=== PATIENT | male | born 1960 | race Caucasian/White ===

== ENCOUNTER 2017-04-17 16:07 | Outpatient (CLI) | payer MEDICARE ==
[~2017-04-17 16:07] MED LIST: ATORVASTATIN CA20 MG ORAL; CLARITHROMYCIN500 MG PO; ELIQUIS5 MG PO; IBUPROFEN600 MG ORAL; LEVAQUIN500 MG ORAL; MEPRON SUS750 MG/5 M ORAL; NORVIR100 MG ORAL; PREZISTA600 MG ORAL; PROMETH-CODEIN 65 ML PO; SPIRIVA18 MCG INH; TIVICAY50 MG ORAL; TRUVADA 200 MG1 EAC1 ORAL
--- NOTE | 2017-04-21 10:06 | Diagnostic Imaging Report ---
Indication: Knee pain Technique: MRI of the right knee was imaged in a 1.5 Grazyna magnet. Pulse sequences obtained include coronal T1 fast spin-echo, STIR, sagittal coronal and axial proton fast spin-echo with fat saturation, sagittal proton fast spin-echo. Comparison: None Findings: There is a moderate to large joint effusion present. In the medial and patellofemoral compartments (lateral patellar facet) of the knee there is moderate chondrosis (grade 3-4) with full-thickness cartilage defects noted. Grade 2-3 defects in the lateral compartment demonstrated. Mild marginal spurs are noted. There is abnormal T2 hyperintense signal within the posterior horn of the medial meniscus. This appears to intersect the articular surface at the free edge of the meniscus, finding that is best appreciated on coronal sequences (for example image 9 of series 7 or series 6). The lateral meniscus is intact. The anterior cruciate ligament and posterior cruciate ligaments are intact. The fibular collateral ligament, biceps femoris tendon, iliotibial band and popliteus tendon appear unremarkable. There is slight enlargement of a mid portion of the MCL. In addition there is longitudinally and vertically oriented fluid signal noted within the inner fibers of the MCL (for example image 13 series 7). The findings likely indicative of a delamination or longitudinal split tear of the MCL. Please correlate clinically. Bone marrow signal is within normal limits. Impression: Suspected free edge tear of the medial meniscus. Split-thickness type tear involving the deep fibers of MCL at its midportion. Moderate to large joint effusion. 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
== END 2017-04-17 18:07 | disposition home or self-care (01) ==
LOC: MRI 16:07
DX: M25.561 Pain in right knee (principal)

== ENCOUNTER 2019-04-16 20:57 | Inpatient (IN) | payer MEDICARE ==
[~2019-04-16] VITALS: Ht 180.3 cm; Wt 90.7 kg
--- NOTE | 2019-04-16 21:16 | Emergency Room Report ---
History of Present Illness General Chief Complaint: General Complaint Source: Patient Present Illness HPI Disclaimer: Please note that this report is being documented using DRAGON technology. This can lead to erroneous entry secondary to incorrect interpretation by the dictating instrument. HPI: 58-year-old male with a history of HIV, Kaposi's sarcoma, protein C deficiency, prior DVTs presents for evaluation of calf pain and swelling. Symptoms have been present approximately 1 week. The patient recently drove from [place] to [place] after which she has been experiencing pain and cramping and swelling in the left lower extremity with mild pain without swelling in the right lower extremity. He has been off of his Eliquis for 2 weeks in preparation for dental surgery. He also recently took a plane ride to [place]. Denies chest pain, shortness of breath, palpitations, lightheadedness, nausea, vomiting, rash or recent fever/illness. PMH: HIV, Kaposi sarcoma, DVTs PSH: Multiple oral surgeries Allergies: Sulfa medications Social Hx: Denies drug or alcohol abuse Allergies: Coded Allergies: SULFA (SULFONAMIDE ANTIBIOTICS) (Verified Allergy, Unknown, 08/04/15) Nursing Documentation-PMH Hx Cardiac Problems: Yes - CHF Hx Hypertension: No Hx Pacemaker: No - AIDS Hx Asthma: No Hx COPD: No - Pneumonia Hx Diabetes: No Hx Cancer: No Hx Gastrointestinal Problems: No Hx Dialysis: No Hx Neurological Problems: Yes - Memory problem Hx Cerebrovascular Accident: No Hx Seizures: No Review of Systems All Other Systems: negative except mentioned in HPI Physical Exam General: Awake and alert, no acute distress HEENT: NC/AT. EOMI. Cardiovascular: RRR. S1 and S2 normal. No murmur appreciated Resp: Normal work of breathing. No cough, wheezing or crackles appreciated Abdomen: Abdomen is soft, nondistended. Nontender Skin: Intact. No abrasions, laceration or rash over the exposed skin MSK: Normal tone and bulk. Moving all extremities. The left lower extremity particularly over the calf is enlarged and tender to palpation over the posterior aspect. No mass appreciated. Full range of motion at the ankles, knees and hips. No significant tenderness in the right lower extremity. No swelling. No overlying skin changes or erythema. Neuro: Awake and alert. Mentating appropriately. Procedures Critical Care Time Critical Care Time Total critical care time: Approximately 45 minutes Due to a high probability of clinically significant, life threatening deterioration, the patient required the highest level of preparedness to intervene emergently and I personally spent this critical care time directly and personally managing the patient. This critical care time included obtaining a history, examining the patient, pulse oximetry, ordering and reviewing studies , ordering treatments, evaluating response to treatment and updating management plan as needed, frequent reassessment and discussion with other providers as well as arranging for ultimate disposition. This critical to care time was performed to assess and manage the high probability of life-threatening deterioration that could result in multiorgan failure. This critical care time is separate from the separately billable procedures and treating other patients. Medical Decision Making Diagnostic Impression: Primary Impression: Left leg DVT Additional Impression: Pulmonary embolism ER Course 58-year-old male presents for evaluation of left lower extremity pain and swelling of several weeks after stopping his Eliquis in preparation for a dental surgery. Patient has a history of protein C/S deficiency and previous history of lower extremity DVTs which he states last occurred in 2007. He denies any chest pain, shortness of breath or palpitations. Will ordered lower extremity duplex study, screening labs, EKG. Laboratory Tests Test 04/16/19 21:20 White Blood Count 7.5 K/UL (4.8-10.8) Red Blood Count 4.34 M/UL (4.70-6.10) L Hemoglobin 14.6 G/DL (14.2-18.0) Hematocrit 40.7 % (42.0-52.0) L Mean Corpuscular Volume 94 FL (80-99) Mean Corpuscular Hemoglobin 33.7 PG (27.0-31.0) H Mean Corpuscular Hemoglobin Concent 35.8 G/DL (32.0-36.0) Red Cell Distribution Width 9.9 % (11.6-14.8) L Platelet Count 301 K/UL (150-450) Mean Platelet Volume 4.8 FL (6.5-10.1) L Neutrophils (%) (Auto) 52.7 % (45.0-75.0) Lymphocytes (%) (Auto) 32.7 % (20.0-45.0) Monocytes (%) (Auto) 11.7 % (1.0-10.0) H Eosinophils (%) (Auto) 1.4 % (0.0-3.0) Basophils (%) (Auto) 1.5 % (0.0-2.0) Prothrombin Time 10.1 SEC (9.30-11.50) Prothrombin Time INR 0.9 (0.9-1.1) PTT 28 SEC (23-33) Sodium Level 139 MMOL/L (136-145) Potassium Level 3.8 MMOL/L (3.5-5.1) Chloride Level 104 MMOL/L (98-107) Carbon Dioxide Level 27 MMOL/L (21-32) Anion Gap 8 mmol/L (5-15) Blood Urea Nitrogen 11 mg/dL (7-18) Creatinine 0.7 MG/DL (0.55-1.30) Estimate Glomerular Filtration Rate > 60 mL/min (>60) Glucose Level 100 MG/DL (74-106) Calcium Level 8.9 MG/DL (8.5-10.1) Total Bilirubin 0.4 MG/DL (0.2-1.0) Aspartate Amino Transferase (AST) 16 U/L (15-37) Alanine Aminotransferase (ALT) 22 U/L (12-78) Alkaline Phosphatase 54 U/L (46-116) Troponin I 0.000 ng/mL (0.000-0.056) Pro-B-Type Natriuretic Peptide 45 pg/mL (0-125) Total Protein 7.3 G/DL (6.4-8.2) Albumin 3.2 G/DL (3.4-5.0) L Globulin 4.1 g/dL Albumin/Globulin Ratio 0.8 (1.0-2.7) L EKG Diagnostic Results EKG Time: 21:28 Rate: normal Rhythm: NSR ST Segments: no acute changes Other Impression Sinus rhythm, normal axis, normal intervals. No ST segment changes. There is an S1, Q3, T3 pattern not seen on prior EKG in 2016 Rhythm Strip Diag. Results Rhythm Strip Time: 21:28 EP Interpretation: yes Rate: 70s Rhythm: NSR, no PVC's, no ectopy Chest X-Ray Diagnostic Results Chest X-Ray Diagnostic Results : Chest X-Ray Ordered: Yes # of Views/Limited/Complete: 1 View Indication: Shortness of Breath Interpretation: no consolidation, no effusion, no pneumothorax Impression: No acute disease Electronically Signed by: Electronically signed by Dr. Bry Jackson CT/MRI/US Diagnostic Results CT/MRI/US Diagnostic Results : Impression Final Report EXAM: CT Angiography Chest With Intravenous Contrast CLINICAL HISTORY: PE TECHNIQUE: Axial computed tomographic angiography images of the chest with intravenous contrast. CTDI is 228.1 mGy and DLP is 961.6 mGy-cm. One or more of the following dose reduction techniques were used: automated exposure control, adjustment of the mA and/or kV according to patient size, use of iterative reconstruction technique. MIP reconstructed images were created and reviewed. COMPARISON: Chest x-ray 04/16/19. No prior CT. FINDINGS: Contrast bolus timing in the pulmonary arteries is suboptimal but exam is diagnostic for PE, example right lower lobe. Incompletely characterize right hepatic lobe liver lesion. Suspect some peripheral nodular enhancement. Differential includes hemangioma. Additional low-density liver lesion too small to characterize Atelectasis with probable early infarct in the right lower lobe. Small lung nodules measuring up to about 3 mm in size, example left lower lobe image 95/10, right middle lobe image 160/11. IMPRESSION: Possible for PE, example right lower lobe. Suspect combination of atelectasis as well as early infarct, example right lower lobe. Indeterminate liver lesion, possible hemangioma and other findings, as above. Radiologist: Christopher Rosas M.D. Electronically Signed: 04/17/19 01:07 Study ready at 00:48 and initial results transmitted at 01:07 Final Report EXAM: US Duplex Bilateral Lower Extremities Veins CLINICAL HISTORY: DVT TECHNIQUE: Real-time duplex ultrasound scan of the bilateral lower extremity veins integrating B-mode two-dimensional vascular structure, Doppler spectral analysis , color flow Doppler imaging and compression. COMPARISON: No relevant prior studies available. FINDINGS: Positive for DVT on the left. There is DVT involving the superficial femoral vein, popliteal vein and calf veins on the left. No evidence for DVT on the right. IMPRESSION: Positive for DVT on the left with involvement of the superficial femoral, popliteal and calf veins. Reevaluation Time: 01:17 Status: unchanged Reevaluation Impression Lower extremity Doppler study showed significant clot burden in the left leg consistent with acute DVT. Given his EKG changes a CTA of the chest was ordered to evaluate for pulmonary embolism. Is is returned positive with a right lower lobe PE but no evidence of heart strain. Patient was started on heparin drip. Labs are otherwise within normal limits. He will be admitted to the hospital for further treatment of PE and DVT. Disposition: ADMITTED INPATIENT Condition: Serious Bry Jackson MD Apr 16, 2019 21:16
[2019-04-16 21:25] VITALS: BP 139/86
--- NOTE | 2019-04-16 21:25 | NUR ---
ER Nurse Note: Pt walked in c/o pain and swelling LT leg and calf. Pt stated he had blood clots on RT leg and has the same s/s. Pt stated he went on a plane on a recent travel and after went on a long car drive to another destination. Pt stated pain occured shortly after but delayed care. Pt ambulatory with limp; strength right great than left. Pt able to move toes without discomfort, cap refill less than 3 secs on all extremities. VSS, oral temp 100.2F, ERMD aware. All labs drawn,awaiting results. SLIV established on LT wrist 18 gauge. ERMD at bedside. US contacted. Will continue to aurelia.
[2019-04-16 21:50] LABS: ANION GAP 8 mmol/L (5-15); BLOOD UREA NITROGEN 11 mg/dL (7-18); CALCIUM 8.9 MG/DL (8.5-10.1); CARBON DIOXIDE 27 MMOL/L (21-32); CHLORIDE 104 MMOL/L (98-107); CREATININE 0.7 MG/DL (0.55-1.30); POTASSIUM 3.8 MMOL/L (3.5-5.1); SODIUM 139 MMOL/L (136-145)
[2019-04-16 21:51] LABS: ALANINE AMINOTRANSFERASE 22 U/L (12-78); ALBUMIN 3.2 G/DL (3.4-5.0); ALBUMIN/GLOBULIN RATIO 0.8 (1.0-2.7); ALKALINE PHOSPHATASE 54 U/L (46-116); ASPARTATE AMINO TRANSFERASE 16 U/L (15-37); BILIRUBIN,TOTAL 0.4 MG/DL (0.2-1.0)
[2019-04-16 21:52] LABS: BASOPHILS % (AUTO) 1.5 % (0.0-2.0); EOSINOPHILS % (AUTO) 1.4 % (0.0-3.0); HEMATOCRIT 40.7 % (42.0-52.0); HEMOGLOBIN 14.6 G/DL (14.2-18.0); LYMPHOCYTES % (AUTO) 32.7 % (20.0-45.0); MEAN CORPUSCULAR VOLUME 94 FL (80-99); MONOCYTES % (AUTO) 11.7 % (1.0-10.0); NEUTROPHILS % (AUTO) 52.7 % (45.0-75.0); PLATELET COUNT 301 K/UL (150-450); RED BLOOD COUNT 4.34 M/UL (4.70-6.10); RED CELL DISTRIBUTION WIDTH 9.9 % (11.6-14.8); WHITE BLOOD COUNT 7.5 K/UL (4.8-10.8)
[2019-04-16 21:56] LABS: INR 0.9 (0.9-1.1)
--- NOTE | 2019-04-16 22:11 | NUR ---
ER Nurse Note: Pt went to US; stable, no signs of distress.
--- NOTE | 2019-04-16 22:31 | Diagnostic Imaging Report ---
EXAM: XR Chest, 1 View CLINICAL HISTORY: PAIN TECHNIQUE: Frontal view of the chest. COMPARISON: 09 03 16 FINDINGS: Hypoventilated, rotated portable chest. Cardiac and mediastinal silhouette accentuated by technique. Suspect heart size within normal limits allowing for technique. Crowding of the bronchovascular markings secondary to low lung volumes. Allowing for this, no overt edema. No consolidation or other acute cardiopulmonary findings. IMPRESSION: Hypoventilation. No acute cardiopulmonary findings.
[2019-04-16] MEDS ORDERED: Omnipaue 350mg/ml 100ml vial INJ PRN (23:00)
--- NOTE | 2019-04-16 23:32 | Diagnostic Imaging Report ---
EXAM: US Duplex Bilateral Lower Extremities Veins CLINICAL HISTORY: DVT TECHNIQUE: Real-time duplex ultrasound scan of the bilateral lower extremity veins integrating B-mode two-dimensional vascular structure, Doppler spectral analysis, color flow Doppler imaging and compression. COMPARISON: No relevant prior studies available. FINDINGS: Positive for DVT on the left. There is DVT involving the superficial femoral vein, popliteal vein and calf veins on the left. No evidence for DVT on the right. IMPRESSION: Positive for DVT on the left with involvement of the superficial femoral, popliteal and calf veins. <MYCVCSECTION> Critical Value Communications 04 16 19 23:34 Call Doctor Regarding Above results, called Dr. Jackson on 04 16 23:34 (-07:00)
[2019-04-16 23:40] VITALS: BP 132/76
[2019-04-17] VITALS (7 sets, daily range): BP systolic 109–175; BP diastolic 68–80
--- NOTE | 2019-04-17 00:04 | NUR ---
ER Nurse Note: Pt back in bed after US. SLIV established on RT AC 18 gauge. Pt taken to CTA chest. Pt stable, no signs of distress. Pt denies chest pain, shortness of breath. Skin intact. Pt ambulatory with unstable gait. Will conitnue to kat
[2019-04-17] MEDS ORDERED: NORCO 10/3251 EA ORAL (00:28)
[2019-04-17] MEDS ORDERED: PERIDEX15 ML MM (00:28)
--- NOTE | 2019-04-17 00:39 | NUR ---
ER Nurse Note: Med recon completed. All meds collected and placed in med box. Pt has Barnard 6.5 tabs. All belongings accounted for; pt has electronic devices pt wants to keep at bedside. Pt awaiting room; will continue to montior.
--- NOTE | 2019-04-17 01:08 | Diagnostic Imaging Report ---
EXAM: CT Angiography Chest With Intravenous Contrast CLINICAL HISTORY: PE TECHNIQUE: Axial computed tomographic angiography images of the chest with intravenous contrast. CTDI is 228.1 mGy and DLP is 961.6 mGy-cm. One or more of the following dose reduction techniques were used: automated exposure control, adjustment of the mA and or kV according to patient size, use of iterative reconstruction technique. MIP reconstructed images were created and reviewed. COMPARISON: Chest x-ray [address] FINDINGS: Contrast bolus timing in the pulmonary arteries is suboptimal but exam is diagnostic for PE, example right lower lobe. Incompletely characterize right hepatic lobe liver lesion. Suspect some peripheral nodular enhancement. Differential includes hemangioma. Additional low-density liver lesion too small to characterize Atelectasis with probable early infarct in the right lower lobe. Small lung nodules measuring up to about 3 mm in size, example left lower lobe image 95 10, right middle lobe image 160 11. IMPRESSION: Possible for PE, example right lower lobe. Suspect combination of atelectasis as well as early infarct, example right lower lobe. Indeterminate liver lesion, possible hemangioma and other findings, as above. <MYCVCSECTION> Critical Value [employer] 04 17 19 01:10 Call Doctor Regarding Above results, called Dr. Jackson on 04 17 01:10 (-07:00)
[2019-04-17] MEDS ORDERED: Heparin 5000 units/ml inj IV ONE (01:15)
[2019-04-17] MEDS ORDERED: Heparin 25,000u/D5W 500ml 500 ML IV SCH (01:15)
--- NOTE | 2019-04-17 01:18 | NUR ---
ER Nurse Note: Pt asleep, no signs of distress. VSS, bed in lowest position. Med put in med room box. All safety measures met; will continue to montior.
--- NOTE | 2019-04-17 01:32 | NUR ---
ER Nurse Note: Heparin drip started at rate of 18units/kg/hr based on weight and protocol. One time IV heparin given.
--- NOTE | 2019-04-17 01:54 | NUR ---
ER Nurse Note: Report given to Bj RN in [place] for continuity of care. Pt aware of admission. Meds placed in med box, Bj aware. All belongings taken with pt and wants to keep all belongings at bedside. SLIV RT AC; patent. IV LT wrist infusing heparin 18 unit/kg/hr. Pt stable.
[2019-04-17] MEDS ORDERED: trelegy (02:47)
--- NOTE | 2019-04-17 02:54 | NUR ---
NURSE NOTES: Patient transferred to room 402-2. Oriented patient in the room and hospital regiment regarding medications and vital signs. All belongings at bedside. Refused to have belongings to the safe. Patient noted with iphone, laptop with chargers, and medications. Medication counted and put in security bag. Skin is warm and dry to touch. IV site noted, heparin drip infusing as ordered 18 units/kg/hr infusing. Respiration is even and unlabored. Bed in low and locked position. Provided safe environment. Abdomen is soft and non distended. Call light is at bedside. Called Primary MD for admission orders.
--- NOTE | 2019-04-17 03:35 | NUR ---
NURSE NOTES: Called covering doctor, awaiting call back, left a message.
--- NOTE | 2019-04-17 04:25 | NUR ---
NURSE NOTES: Paged production sampler MD for patient, awaiting call back. charge nurse is aware. Patient in bed, asleep. No s/s of distress noted.
--- NOTE | 2019-04-17 05:00 | NUR ---
NURSE NOTES: Patient in bed, asleep. No s/s of distress. Doctors exchange called, still no response from transfusion nurse doctor. Exchange will attempt again.
[2019-04-17] MEDS ORDERED: Trelegy Ellipta (06:30)
[2019-04-17] MEDS ORDERED: SYMTUZA 800-151 EACH PO (06:31)
--- NOTE | 2019-04-17 07:10 | NUR ---
NURSE NOTES: HANDOFF RECEIVED FROM JUSTIN HANSEN. PATIENT RECEIVED AWAKE AND ALERT AND ABLE TO MAKE NEEDS KNOWN. PATIENT HAS HEPARIN DRIP RUNNING AT THE PRESCRIBED RATE. PATIENT IN NO VISIBLE SIGNS OF DISTRESS. PATIENT HAS CALL LIGHT WITHIN REACH. BED IN THE LOW AND LOCKED POSITION. WILL CONTINUE TO MONITOR.
--- NOTE | 2019-04-17 07:29 | NUR ---
HAND-OFF: Report given to JUSTIN Xiong.
[2019-04-17 08:17] LABS: EOSINOPHILS % (AUTO) 1.3 % (0.0-3.0); HEMATOCRIT 41.6 % (42.0-52.0); HEMOGLOBIN 14.5 G/DL (14.2-18.0); LYMPHOCYTES % (AUTO) 32.2 % (20.0-45.0); MEAN CORPUSCULAR VOLUME 95 FL (80-99); MONOCYTES % (AUTO) 10.2 % (1.0-10.0); NEUTROPHILS % (AUTO) 55.4 % (45.0-75.0); PLATELET COUNT 335 K/UL (150-450); RED BLOOD COUNT 4.39 M/UL (4.70-6.10); RED CELL DISTRIBUTION WIDTH 10.6 % (11.6-14.8); WHITE BLOOD COUNT 7.2 K/UL (4.8-10.8)
[2019-04-17 08:44] LABS: ALANINE AMINOTRANSFERASE 21 U/L (12-78); ALBUMIN/GLOBULIN RATIO 0.8 (1.0-2.7); ALKALINE PHOSPHATASE 46 U/L (46-116); ANION GAP 12 mmol/L (5-15); ASPARTATE AMINO TRANSFERASE 14 U/L (15-37); BILIRUBIN,TOTAL 0.5 MG/DL (0.2-1.0); BLOOD UREA NITROGEN 8 mg/dL (7-18); CALCIUM 8.8 MG/DL (8.5-10.1); CARBON DIOXIDE 25 MMOL/L (21-32); CHLORIDE 104 MMOL/L (98-107); CREATININE 0.7 MG/DL (0.55-1.30); POTASSIUM 3.6 MMOL/L (3.5-5.1); SODIUM 141 MMOL/L (136-145)
[2019-04-17] MEDS: TRELEGY ELLIPTA INH SCH (09:00)
--- NOTE | 2019-04-17 09:00 | NUR ---
NURSE NOTES: MEASURED PATIENTS LEFT LEG PER PROTOCOL. ENTERED THE MEASUREMENT IN THE CHART 41CM WHEN IN FACT THE MEASUREMENT WAS MADE IN INCHES. 41 INCHES IN CM IS 104 CENTIMETERS.
[2019-04-17] MEDS ORDERED: Heparin 5000 units/ml inj IV SCH (09:15)
[2019-04-17] MEDS: Heparin 25,000u/D5W 500ml 500 ML IV SCH ×2 (09:49→09:56)
--- NOTE | 2019-04-17 10:28 | History and Physical ---
History of Present Illness General Date patient seen: Apr 17, 2019 Reason for Hospitalization: General Complaint Present Illness HPI 58 year old male with a history of HIV, Kaposi's sarcoma, protein S/C deficiency , prior DVTs presented for evaluation of calf pain and swelling. Symptoms have been present approximately 1 week. Patient recently drove from [place] to [place] after which she has been experiencing pain and cramping and swelling in the left lower extremity with mild pain without swelling in the right lower extremity. He has been off of his Eliquis for 2 weeks in preparation for dental surgery. He also recently took a plane ride to [place]. Has chest pain with inspiration, but denies shortness of breath, palpitations, lightheadedness , nausea, vomiting, rash or recent fever/illness. When he was on Eliquis, he was only taking 2.5 mg BID due to lots of bruising with 5 mg BID. His last DVT was in 2007. Denies ever having had PE. PMH: HIV, Kaposi sarcoma, DVTs PSH: Multiple oral surgeries Social Hx: Denies drug or alcohol abuse. He is unemployed Family history: CAD in dad, he of [place] in his 40's Allergies: Coded Allergies: SULFA (SULFONAMIDE ANTIBIOTICS) (Verified Allergy, Unknown, 08/04/15) Medication History Scheduled Apixaban (Eliquis), 5 MG PO BID, (Reported) Atorvastatin Calcium* (Atorvastatin Calcium*), 10 MG ORAL BEDTIME, (Reported) Atovaquone (Mepron), 750 MG ORAL TWICE A DAY, (Reported) Chlorhexidine Gluconate (Peridex), 15 ML MM 2Xday, (Reported) Clarithromycin* (Clarithromycin*), 500 MG PO DAILY, (Reported) Darunavir Ethanolate* (Prezista*), 800 MG ORAL DAILY, (Reported) Darunavir/Cob/Emtri/Tenof Alaf (Symtuza [id number] mg Tab), 1 EACH PO DAILY, (Reported) [Trelegy Ellipta], DAILY, (Reported) Scheduled PRN Hydrocodone/Acetaminophen (Hydrocodon-Acetaminophn 10-325), 1 TAB ORAL Q6H PRN for For Pain, (Reported) Ibuprofen* (Motrin*), 600 MG ORAL Q8H PRN for For Pain, (Reported) Discontinued Medications Dolutegravir Sodium (Tivicay), 50 MG ORAL DAILY, (Reported) Discontinued Reason: Pt stopped taking med Emtricitabine/Tenofovir 200-300MG* (Truvada 200-300MG*), 1 TAB ORAL DAILY, ( Reported) Discontinued Reason: Pt stopped taking med Ritonavir* (Norvir*), 100 MG ORAL TWICE A DAY, (Reported) Discontinued Reason: Pt stopped taking med Tiotropium [place]* (Spiriva*), 1 PUFF INH DAILY, (Reported) Discontinued Reason: Pt stopped taking med Patient History Healthcare decision maker Resuscitation status Advanced Directive on File Review of Systems Constitutional: Denies: no symptoms, see HPI, chills, sweats, fever, malaise, weakness, other Eye: Denies: no symptoms, see HPI, eye pain, blurred vision, tearing, double vision, nose pain, nose congestion, acuity changes, discharge, other ENT: Denies: no symptoms, see HPI, ear pain, ear discharge, nose pain, nose congestion, throat pain, throat swelling, mouth pain, hearing loss, nasal discharge, other Respiratory: Denies: no symptoms, see HPI, cough, orthopnea, shortness of breath, stridor, wheezing, WANG, sputum, other Cardiovascular: Reports: chest pain - on inspiration ; Denies: no symptoms, see HPI, edema, palpitations, syncope, PND, other Gastrointestinal: Denies: no symptoms, see HPI, abdominal pain, constipation, diarrhea, nausea, vomiting, melena, hematemesis, other Genitourinary: Denies: no symptoms, see HPI, discharge, dysuria, frequency, hematuria, pain, retention, incontinence, urgency, vag bleed/dc, other Musculoskeletal: Denies: no symptoms, see HPI, back pain, gout, joint pain, joint swelling, muscle pain, muscle stiffness, other Skin: Denies: no symptoms, see HPI, rash, change in color, change in hair/nails , dryness, lesions, other Psychiatric: Denies: no symptoms, see HPI, prior hx, anxiety, depressed feelings, emotional problems, SI, HI, hallucinations, other Endocrine: Denies: no symptoms, see HPI, excessive sweating, flushing, intolerance to temperature, increased thirst, increased urine, unexplained weight loss, other Hematologic/Lymphatic: Reports: blood clots, easy bruising; Denies: no symptoms , see HPI, anemia, easy bleeding, swollen glands, diathesis, other Physical Exam Physical Exam Narrative General: Awake and alert, no acute distress HEENT: NC/AT. EOMI. Cardiovascular: RRR. S1 and S2 normal. No m/r/g Resp: CTA BL no wheezing or crackles appreciated Abdomen: soft, nondistended. Nontender MSK: left lower extremity, over the calf is enlarged and tender to palpation over the posterior aspect, tender, all the way to the thighs. No significant tenderness in the right lower extremity. No swelling. No overlying skin changes or erythema. Neuro: Awake and alert. Grossly normal. Skin: Intact. No abrasions, laceration or rash over the exposed skin. arm tattoo Last 24 Hour Vital Signs Date Time Temp Pulse Resp B/P (MAP) Pulse Ox O2 Delivery O2 Flow Rate FiO2 04/17/19 09:00 Room Air 04/17/19 08:00 97.7 60 18 109/68 (82) 96 04/17/19 04:00 99.0 81 16 122/74 (90) 98 04/17/19 03:09 Room Air 04/17/19 02:30 99.1 82 20 126/76 (93) 98 04/17/19 01:52 99.3 78 15 124/75 99 Room Air 04/17/19 01:11 99.3 78 15 124/75 99 Room Air 04/16/19 23:40 99.3 80 15 132/76 99 Room Air 04/16/19 21:25 80 14 Room Air 04/16/19 21:25 100.2 78 14 139/86 99 Room Air 04/16/19 21:07 98.2 80 14 139/86 (103) 99 Room Air Intake and Output 04/16/19 04/17/19 19:00 07:00 Intake Total 547.974 ml Balance 547.974 ml Intake Oral 450 ml IV Total 97.974 ml # Voids 2 Laboratory Tests Test 04/16/19 21:20 04/17/19 07:30 White Blood Count 7.5 K/UL (4.8-10.8) 7.2 K/UL (4.8-10.8) Red Blood Count 4.34 M/UL (4.70-6.10) L 4.39 M/UL (4.70-6.10) L Hemoglobin 14.6 G/DL (14.2-18.0) 14.5 G/DL (14.2-18.0) Hematocrit 40.7 % (42.0-52.0) L 41.6 % (42.0-52.0) L Mean Corpuscular Volume 94 FL (80-99) 95 FL (80-99) Mean Corpuscular Hemoglobin 33.7 PG (27.0-31.0) H 32.9 PG (27.0-31.0) H Mean Corpuscular Hemoglobin Concent 35.8 G/DL (32.0-36.0) 34.7 G/DL (32.0-36.0) Red Cell Distribution Width 9.9 % (11.6-14.8) L 10.6 % (11.6-14.8) L Platelet Count 301 K/UL (150-450) 335 K/UL (150-450) Mean Platelet Volume 4.8 FL (6.5-10.1) L 4.8 FL (6.5-10.1) L Neutrophils (%) (Auto) 52.7 % (45.0-75.0) 55.4 % (45.0-75.0) Lymphocytes (%) (Auto) 32.7 % (20.0-45.0) 32.2 % (20.0-45.0) Monocytes (%) (Auto) 11.7 % (1.0-10.0) H 10.2 % (1.0-10.0) H Eosinophils (%) (Auto) 1.4 % (0.0-3.0) 1.3 % (0.0-3.0) Basophils (%) (Auto) 1.5 % (0.0-2.0) 1.0 % (0.0-2.0) Prothrombin Time 10.1 SEC (9.30-11.50) Prothromb Time International Ratio 0.9 (0.9-1.1) Activated Partial Thromboplast Time 28 SEC (23-33) 41 SEC (23-33) H Sodium Level 139 MMOL/L (136-145) 141 MMOL/L (136-145) Potassium Level 3.8 MMOL/L (3.5-5.1) 3.6 MMOL/L (3.5-5.1) Chloride Level 104 MMOL/L (98-107) 104 MMOL/L (98-107) Carbon Dioxide Level 27 MMOL/L (21-32) 25 MMOL/L (21-32) Anion Gap 8 mmol/L (5-15) 12 mmol/L (5-15) Blood Urea Nitrogen 11 mg/dL (7-18) 8 mg/dL (7-18) Creatinine 0.7 MG/DL (0.55-1.30) 0.7 MG/DL (0.55-1.30) Estimat Glomerular Filtration Rate > 60 mL/min (>60) > 60 mL/min (>60) Glucose Level 100 MG/DL (74-106) 137 MG/DL (74-106) H Calcium Level 8.9 MG/DL (8.5-10.1) 8.8 MG/DL (8.5-10.1) Total Bilirubin 0.4 MG/DL (0.2-1.0) 0.5 MG/DL (0.2-1.0) Aspartate Amino Transf (AST/SGOT) 16 U/L (15-37) 14 U/L (15-37) L Alanine Aminotransferase (ALT/SGPT) 22 U/L (12-78) 21 U/L (12-78) Alkaline Phosphatase 54 U/L (46-116) 46 U/L (46-116) Troponin I 0.000 ng/mL (0.000-0.056) Pro-B-Type Natriuretic Peptide 45 pg/mL (0-125) Total Protein 7.3 G/DL (6.4-8.2) 6.8 G/DL (6.4-8.2) Albumin 3.2 G/DL (3.4-5.0) L 3.0 G/DL (3.4-5.0) L Globulin 4.1 g/dL 3.8 g/dL Albumin/Globulin Ratio 0.8 (1.0-2.7) L 0.8 (1.0-2.7) L Height (Feet): 5 Height (Inches): 11.00 Weight (Pounds): 200 Medications Current Medications Medications (Trade) Dose Ordered Sig/Deneen Route PRN Reason Start Time Stop Time Status Last Admin Dose Admin Acetaminophen/ Hydrocodone Bitart ([place] 10/325) 1 tab Q4H PRN ORAL For Pain 04/17/19 06:30 04/24/19 06:29 Heparin Sodium (Porcine) (Heparin 5000 units/ml) 7,000 units ONCE IV 04/17/19 09:15 04/17/19 10:30 Heparin Sodium/ Dextrose 500 ml @ 39.916 mls/ hr ADJUST PER PROTOCOL IV 04/17/19 09:15 05/17/19 09:14 04/17/19 09:56 Iohexol (Omnipaque) 100 mg NOW PRN INJ Radiology Procedure 04/16/19 23:00 04/18/19 22:54 Patient Own Medication (Patient's Own Inhaler) 1 puff DAILY INH 04/17/19 09:00 05/17/19 08:59 Patient Own Medication (Patient's Own Med) 1 ea DAILY ORAL 04/17/19 09:00 05/17/19 08:59 04/17/19 09:44 Objective Narrative EKG strip reviewed by me NSR, [id number] CTA pulmonary: as read by radiology and reviewed by me Contrast bolus timing in the pulmonary arteries is suboptimal but exam is diagnostic for PE, example right lower lobe. Incompletely characterize right hepatic lobe liver lesion. Suspect some peripheral nodular enhancement. Differential includes hemangioma. Additional low-density liver lesion too small to characterize Atelectasis with probable early infarct in the right lower lobe. Small lung nodules measuring up to about 3 mm in size, example left lower lobe image 95 10, right middle lobe image 160 11. Venous duplex: Positive for DVT on the left. There is DVT involving the superficial femoral vein, popliteal vein and calf veins on the left. Assessment/Plan Status: stable Assessment/Plan: 58 year old male with protein c/s deficiency presented with left lower extremity pain after recent travel and Eliquis on hold for dental procedure #Left lower extremity DVT #PE-submassive #Protein C/S deficiency -Started on heparin gtt. Will switch to Lovenox while in the hospital -Can be discharged on Eliquis -Echocardiogram -admitted to [facility], however transfer to [facility] if hemodynamic instability -Patient counselled reg the importance of timing of stop/start AC in the future and that it should be coordinated with his pcp and dentist. #HIV -resume home meds #HLD -Atorvastatin #COPD-stable -continue home inhalers I spent 70 minute son this encounter. > 50% spent on care coordination and counselling. Spent additional 31 minutes in chart review. Plan of care discussed with patient and rn. Chase Soto M.D. Apr 17, 2019 10:28
--- NOTE | 2019-04-17 12:20 | NUR ---
NURSE NOTES: DR NEVES MADE ROUNDS ON PATIENT. GAVE ORDERS TO DISCONTINUE HEPARIN DRIP AND PLACED ORDER FOR LOVONOX AND 2D ECHO TO ASSESS FOR PORTAL HYPERTENSION. ORDERS ENTERED WITH EDINSON.
[2019-04-17] MEDS: Enoxaparin Sodium 300mg/3ml vial SUBQ SCH ×2 (13:39→22:02)
--- NOTE | 2019-04-17 19:13 | NUR ---
HAND-OFF: Report given to JUSTIN HANSEN.
--- NOTE | 2019-04-17 19:54 | NUR ---
NURSE NOTES: Patient in bed, awake, alert and verbally responsive. Able to make needs known. Respiration is even and unlabored. Kept clean and comfortable. Abdomen is soft and non distended. Skin is warm and dry to touch. Noted with pain, 5/10, patient refuse pain medication at the moment. Call light is at bedside. Bed in low and locked position. Provided safe environment. Will continue plan of care.
[2019-04-17] MEDS: HYDROcodone/Acetamin 10/325 tab ORAL PRN (22:10)
[2019-04-18] VITALS (7 sets, daily range): BP systolic 106–121; BP diastolic 64–77
[2019-04-18] MEDS: HYDROcodone/Acetamin 10/325 tab ORAL PRN ×3 (01:41→20:28)
--- NOTE | 2019-04-18 01:49 | NUR ---
NURSE NOTES: patient complained of generalized pain, given PRN pain medication as ordered. Will reassess. Call light is at bedside.
--- NOTE | 2019-04-18 07:04 | NUR ---
HAND-OFF: Report given to JUSTIN Xiong.
--- NOTE | 2019-04-18 07:51 | NUR ---
NURSE NOTES: HANDOFF RECEIVED FROM JUSTIN HANSEN. PATIENT AWAKE ALERT AND STABLE WITH NO PHYSICAL SIGNS OF DISTRESS. PATIENT IS ABLE TO MAKE NEEDS KNOWN. BED IN THE LOW AND LOCKED POSITION WITH CALL LIGHT WITHIN REACH. IV SITE IS CLEAN DRY AND INTACT, SALINE LOCKED. WILL CONTINUE TO MONITOR PATIENT.
--- NOTE | 2019-04-18 08:00 | NUR ---
NURSE NOTES: FLOOR IS SHORT ON COMPUTERS. MANAGED TO FIND A COMPUTER THAT HAS ACCESS TO THE EMAR. THE COMPUTER BEING USED DOES NOT HAVE A FUNCTIONAL SCANNER TO SCAN THE PATIENTS ID BRACELET AND MEDICATIONS. VERIFIED PATIENT USING 2 IDENTIFIERS AND MANUALLY CHECKED THE MEDICATIONS TO THE EMAR.
[2019-04-18] MEDS: CHLORHEXIDINE ORAL SCH ×2 (08:44→18:39)
[2019-04-18] MEDS ORDERED: Enoxaparin Sodium 300mg/3ml vial SUBQ SCH (09:00)
[2019-04-18] MEDS ORDERED: Darunavir 600mg tab ORAL SCH (09:00)
--- NOTE | 2019-04-18 12:32 | NUR ---
NURSE NOTES: PATIENT REPORTS PAIN AND SWELLING OF THE LEFT UPPER THIGH AND HIP, CONTACTED DR NEVES TO GIVE UPDATE ON THE PATIENTS CONDITION.
[2019-04-18] MEDS ORDERED: Albuterol/Ipratropium 3ml neb HHN PRN (18:05)
--- NOTE | 2019-04-18 18:10 | General Progress Note ---
Assessment/Plan Problem List: (1) Left leg DVT ICD Codes: I82.402 - Acute embolism and thrombosis of unspecified deep veins of left lower extremity SNOMED: 573180928 (2) Pulmonary embolism ICD Codes: I26.99 - Other pulmonary embolism without acute cor pulmonale SNOMED: 62828234 (3) HIV (human immunodeficiency virus infection) ICD Codes: Z21 - Asymptomatic human immunodeficiency virus [HIV] infection status SNOMED: 64853040 (4) COPD (chronic obstructive pulmonary disease) ICD Codes: J44.9 - Chronic obstructive pulmonary disease, unspecified SNOMED: 15285799 (5) Hypotension ICD Codes: I95.9 - Hypotension, unspecified SNOMED: 52193812 Status: stable Assessment/Plan: 58 year old male with protein c/s deficiency presented with left lower extremity DVT and PE while off eliquis. #Left lower extremity DVT #PE-submassive #Protein C/S deficiency >TTE normal. No heart straint -Started on heparin gtt. Will switch to Lovenox while in the hospital -Appreciate heme-onc consult: Dr. Weaver. For correct dosing and bridge to follow up as outpatient. -Appreciate pulmonology consult: Dr. Franz. CT shows possible PE. Consulted to confirm and for management of PE -admitted to [facility], however transfer to [facility] if hemodynamic instability -Patient counselled reg the importance of timing of stop/start AC in the future and that it should be coordinated with his pcp and dentist. #HIV -resume home meds #HLD -Atorvastatin #COPD-stable -continue home inhalers FENPPX DVTPPX: lovenox as above GI PPX: none needed Fluids: none Diet: regular Lines: peripheral PT/OT: none needed Code status: Full Dispo: Home Reason for Continued Hospitalization: Acute PE 37 minutes spent on this encounter. Discussed with pulmonology, hematology/ oncology, RN, and patient . > 50% spent on counseling and care coordination. Time of note may not reflect time patient was seen. Subjective Date patient seen: Apr 18, 2019 Constitutional: Denies: chills, diaphoresis, fever, malaise, weakness, other HEENT: Denies: eye pain, blurred vision, tearing, double vision, ear pain, ear discharge, nose pain, nose congestion, throat pain, throat swelling, mouth pain , mouth swelling, other Cardiovascular: Reports: chest pain; Denies: edema, irregular heart rate, lightheadedness, palpitations, syncope, other Respiratory: Denies: cough, orthopnea, shortness of breath, SOB with excertion , SOB at rest, sputum, stridor, wheezing, other Gastrointestinal/Abdominal: Denies: abdomen distended, abdominal pain, black stools, tarry stools, blood in stool, constipated, diarrhea, difficulty swallowing, nausea, poor appetite, poor fluid intake, rectal bleeding, vomiting , other Genitourinary: Denies: burning, discharge, frequency, flank pain, hematuria, incontinence, pain, urgency, other Neurologic/Psychiatric: Denies: anxiety, depressed, emotional problems, headache, numbness, paresthesia, pre-existing deficit, seizure, tingling, tremors, weakness, other Endocrine: Denies: excessive sweating, flushing, intolerance to cold, intolerance to heat, increased hunger, increased thirst, increased urine, unexplained weight gain, unexplained weight loss, other Hematologic/Lymphatic: Denies: anemia, easy bleeding, easy bruising, other Allergies: Coded Allergies: SULFA (SULFONAMIDE ANTIBIOTICS) (Verified Allergy, Unknown, 08/04/15) Subjective No acute events overnight per nursing. Some pleuritic chest pain, which is slightly improved since admission. Nonradiating, 6 out of 10, intermittent. Patient states that he is feeling that his left hip was swollen. He states that he has been diagnosed with protein C and S deficiency, and that his PCP prescribed Eliquis 2.5 mg p.o. daily because he bruises easily. He also states that he only takes the medication intermittently. He does not follow-up with a support services specialist oncologist. Denies any shortness of breath cough fever or chills. Objective Last 24 Hour Vital Signs Date Time Temp Pulse Resp B/P (MAP) Pulse Ox O2 Delivery O2 Flow Rate FiO2 04/18/19 16:00 97.6 67 18 121/77 (92) 97 04/18/19 12:21 98.3 63 18 120/66 (84) 97 04/18/19 09:00 Room Air 04/18/19 08:00 98.6 59 18 106/64 (78) 98 04/18/19 04:00 97.4 72 18 114/70 (85) 95 04/18/19 00:00 97.2 68 18 112/70 (84) 96 04/17/19 20:36 Room Air 04/17/19 20:00 97.0 71 18 114/73 (87) 97 Intake and Output 04/17/19 04/18/19 19:00 07:00 Intake Total 500 ml 2000 ml Balance 500 ml 2000 ml Intake Oral 500 ml 2000 ml # Voids 4 5 Height (Feet): 5 Height (Inches): 11.00 Weight (Pounds): 200 General Appearance: WD/WN, no apparent distress, alert EENT: PERRL/EOMI, normal ENT inspection Neck: non-tender, normal alignment, supple Cardiovascular: normal peripheral pulses, normal rate, regular rhythm, no JVD Respiratory/Chest: chest wall non-tender, lungs clear, normal breath sounds Abdomen: normal bowel sounds, non tender, soft, no organomegaly Extremities: other - Trace lower extremity edema of left lower leg Neurologic: guest services officer II-XII grossly normal, no motor/sensory deficits, alert, responsive, normal mood/affect Skin: normal pigmentation, warm/dry Kennedy Purcell D.O. Apr 18, 2019 18:10
[2019-04-18] MEDS: Eliquis 5mg tablet ORAL SCH (18:40)
[2019-04-18] MEDS: TRELEGY ELLIPTA INH SCH (19:00)
--- NOTE | 2019-04-18 19:32 | NUR ---
HAND-OFF: Report given to JUSTIN ALCANTARA.
--- NOTE | 2019-04-18 20:00 | NUR ---
NURSE NOTES: received pt in bed. AAOx4 in room air. no acute distress this time. call light reach within and bed is the lowest position. will continue to provide plan of care.
[2019-04-19] VITALS: BP 111/65
[2019-04-19 04:00] VITALS: BP 116/70
[2019-04-19] MEDS: HYDROcodone/Acetamin 10/325 tab ORAL PRN (04:37)
--- NOTE | 2019-04-19 07:19 | NUR ---
HAND-OFF: Report given to Megan ANDERSON.
[2019-04-19 07:21] LABS: BASOPHILS % (AUTO) 0.7 % (0.0-2.0); EOSINOPHILS % (AUTO) 7.3 % (0.0-3.0); HEMATOCRIT 41.8 % (42.0-52.0); HEMOGLOBIN 14.4 G/DL (14.2-18.0); LYMPHOCYTES % (AUTO) 26.7 % (20.0-45.0); MEAN CORPUSCULAR VOLUME 94 FL (80-99); MONOCYTES % (AUTO) 12.9 % (1.0-10.0); NEUTROPHILS % (AUTO) 52.4 % (45.0-75.0); PLATELET COUNT 382 K/UL (150-450); RED BLOOD COUNT 4.42 M/UL (4.70-6.10); RED CELL DISTRIBUTION WIDTH 10.7 % (11.6-14.8); WHITE BLOOD COUNT 5.5 K/UL (4.8-10.8)
[2019-04-19 07:38] LABS: ANION GAP 9 mmol/L (5-15); BLOOD UREA NITROGEN 11 mg/dL (7-18); CALCIUM 8.8 MG/DL (8.5-10.1); CARBON DIOXIDE 29 MMOL/L (21-32); CHLORIDE 102 MMOL/L (98-107); CREATININE 0.7 MG/DL (0.55-1.30); SODIUM 140 MMOL/L (136-145)
[2019-04-19 08:00] VITALS: BP 111/71
--- NOTE | 2019-04-19 08:23 | NUR ---
NURSE NOTES: Patient is awake and alert and oriented,respirations unlabored.patient sitting up in bed ate breakfast.Sitting up and using personal computer. patient state he is having some pain,butr does not want pain medication at this time.Will monitor.Call light within reach.
[2019-04-19] MEDS: TRELEGY ELLIPTA INH SCH (08:39)
--- NOTE | 2019-04-19 08:39 | NUR ---
RESPIRATORY NOTE: Manually scan the MDI due to the scanner is not working.
--- NOTE | 2019-04-19 08:40 | NUR ---
RESPIRATORY NOTE: Pt wants to keep the MDI at bedside because he said he hasn't had it for 3 days and he doesn't feel safe when RT/RN keep it, he is afraid it will happen again. Assured him that RT will come to give it to him daily, but he still wants to keep it at bedside. He will call director of enterprise applications if RT/RN take it back. Instructed pt that the [place] is once a day, he can have it on the bedside but can not use it without RT/RN presents. Pt promises he will follow instruction. JUSTIN Guzman made aware.
[2019-04-19] MEDS: Eliquis 5mg tablet ORAL SCH (10:06)
[2019-04-19] MEDS: CHLORHEXIDINE ORAL SCH (10:07)
[2019-04-19 12:00] VITALS: BP 142/86
--- NOTE | 2019-04-19 12:16 | Discharge Instructions ---
Discharge Instructions Discharge Instructions Follow up with: PCP within one week. Dr. Edward Weaver 2-4 weeks. Diet: regular Resume Normal Activity?: Yes Activity: resume normal activities, other - avoid contact sports Special Instructions Take xarelto 15mg twice daily for 3 weeks then 20mg daily. Do not miss any doses. Can use compression stocking or finn bandage for comfort of left leg Follow up with PCP within one week. Follow up with Dr. Weaver in 2-4 weeks as outpatient. For Congestive Heart Failure Reminder Report to your physician any weight gain of 5 pounds or more in one week. Kennedy Purcell D.O. Apr 19, 2019 12:16
[2019-04-19] MEDS ORDERED: XARELTO20 MG ORAL (12:23)
[2019-04-19] MEDS ORDERED: XARELTO15 MG ORAL (12:23)
[2019-04-19] MEDS ORDERED: Tubing IV Secondary IV ONE (14:41)
--- NOTE | 2019-04-19 14:44 | NUR ---
NURSE NOTE Discharge at this time at this time with discharge instructions given.Patient has his personal belongings.patient has his medications and inhalers and mouth wash.IV removed,ID hospital band removed.Patient will take Lyft home.Patient accompany down to hospital lobby.
--- NOTE | 2019-04-19 15:50 | Cardiology Report ---
APPROVED REPORT EXAM: Two-dimensional and M-mode echocardiogram with Doppler and color Doppler. INDICATION Thrombosis M-Mode DIMENSIONS IVSd1.0 (0.7-1.1cm)Left Atrium (MM)4.0 (1.6-4.0cm) LVDd4.7 (3.5-5.6cm)Aortic Root3.9 (2.0-3.7cm) PWd1.2 (0.7-1.1cm)Aortic Cusp Exc.2.0 (1.5-2.0cm) LVDs3.1 (2.5-4.0cm) PWs1.7 cm Normal left ventricular chamber size, systolic function and wall motion. Left ventricular ejection fraction estimated to be 60-65 %. No evidence of left ventricular hypertrophy. No evidence of pericardial effusion. Left atrial size at upper limits of normal. Right cardiac chamber sizes are within normal limits. Focal aortic valve sclerosis with adequate cusp excursion. Thickened mitral valve leaflets with normal excursion. Mild mitral annulus and aortic root calcification. Pulmonic valve not visualized. Normal tricuspid valve structure. IVC dilated at 2.2 cm with physiological collapse. A color flow and spectral Doppler study was performed and revealed: No aortic regurgitation. No mitral regurgitation. Normal left ventricular diastolic function. Trace tricuspid regurgitation. Tricuspid systolic velocities suggests peak right ventricular systolic pressure of 21 mmHg.
--- NOTE | 2019-04-19 15:58 | Discharge Summary ---
Discharge Summary Hospital Course Date of Admission Apr 17, 2019 at 00:11 Date of Discharge Apr 19, 2019 at 14:42 Admitting Diagnosis DEEP VEIN THROMBOSIS and Pulmonary Embolism PACO Collins is a 58 year old male who was admitted on Apr 17, 2019 at 00:11 for Deep Vein Thrombosis Consultations Pulmonology, hematology/oncology Hospital Course 58 year old male with a history of HIV, Kaposi's sarcoma, protein S/C deficiency , prior DVTs presented for evaluation of calf pain and swelling and right sided pleuritic chest pain. Symptoms had been present approximately 1 week. Patient recently drove from [place] to [place] after which she has been experiencing pain and cramping and swelling in the left lower extremity with mild pain without swelling in the right lower extremity. He had been off of his Eliquis for 1-2 months because he did not think he needed it any more and in preparation for dental surgery. He also recently took a plane ride to [place]. Has chest pain with inspiration, but denies shortness of breath, palpitations, lightheadedness, nausea, vomiting, rash or recent fever/illness. When he was on Eliquis, he was only taking 2.5 mg BID due to lots of bruising with 5 mg BID. His last DVT was in 2007. Denies ever having had PE. CT pulmonary angiogram showed right-sided submassive pulmonary embolism. Doppler of left lower extremity showed DVT. TTE showed normal heart function with no right heart strain. Vital signs remained stable. Pulmonology was consulted who agreed with diagnosis of pulmonary embolism and anticoagulation. Hematology/oncology recommended Xarelto as an outpatient with routine follow- up. Patient was discharged on Xarelto 15 mg p.o. twice daily for 3 weeks and then 20 mg p.o. daily (changed to Xarelto for better compliance). Patient has a risk of bleeding given his HIV medications. Patient was informed of this risk , but still wished to take the Xarelto. He was given strict instructions to monitor for any bleeding and to notify his PCP if there are any signs. Patient' s pleuritic chest pain improved, he was medically stable on discharge. #Left lower extremity DVT #PE-submassive #Protein C/S deficiency >TTE normal. No heart straint -Started on heparin gtt. Will switch to Lovenox while in the hospital -Appreciate heme-onc consult: Dr. Weaver. For correct dosing and bridge to follow up as outpatient. Discharge on Xarelto -Appreciate pulmonology consult: Dr. Franz. CT shows possible PE. Consulted to confirm and for management of PE -admitted to [facility], however transfer to tele if hemodynamic instability -Patient counselled reg the importance of timing of stop/start AC in the future and that it should be coordinated with his pcp and dentist. #HIV -resume home meds #HLD -Atorvastatin #COPD-stable -continue home inhalers FENPPX DVTPPX: xarelto GI PPX: none needed Fluids: none Diet: regular Lines: peripheral PT/OT: none needed Code status: Full Dispo: Home > 30 minutes spent on this encounter. Discussed with pulmonology, hematology/ oncology, RN, and patient . > 50% spent on counseling and care coordination. Time of note may not reflect time patient was seen. Discharge Condition Upon Discharge: stable Discharge Disposition Patient was discharged to home Discharge Diagnoses: (1) Acute pulmonary embolism (2) Left leg DVT (3) HIV (human immunodeficiency virus infection) (4) COPD (chronic obstructive pulmonary disease) Discharge Instructions Discharge Instructions Follow up with: PCP within one week. Dr. Edward Weaver 2-4 weeks. Activity: resume normal activities, other - avoid contact sports Kennedy Purcell D.O. Apr 19, 2019 15:58
--- NOTE | 2019-04-19 16:49 | Consultation ---
History of Present Illness General Chief Complaint: General Complaint Present Illness Allergies: Coded Allergies: SULFA (SULFONAMIDE ANTIBIOTICS) (Verified Allergy, Unknown, 08/04/15) Medication History Scheduled Atorvastatin Calcium* (Atorvastatin Calcium*), 10 MG ORAL BEDTIME, (Reported) Chlorhexidine Gluconate (Peridex), 15 ML MM 2Xday, (Reported) Darunavir/Cob/Emtri/Tenof Alaf (Symtuza 871-035-514-10 mg Tab), 1 EACH PO DAILY, (Reported) Rivaroxaban (Xarelto), 15 MG ORAL BID Rivaroxaban (Xarelto), 20 MG ORAL DAILY [Trelegy Ellipta], DAILY, (Reported) Scheduled PRN Hydrocodone/Acetaminophen (Hydrocodon-Acetaminophn 10-325), 1 TAB ORAL Q6H PRN for For Pain, (Reported) Ibuprofen* (Motrin*), 600 MG ORAL Q8H PRN for For Pain, (Reported) Discontinued Medications Apixaban (Eliquis), 5 MG PO BID, (Reported) Discontinued Reason: MD discontinued med Atovaquone (Mepron), 750 MG ORAL TWICE A DAY, (Reported) Discontinued Reason: Pt stopped taking med Clarithromycin* (Clarithromycin*), 500 MG PO DAILY, (Reported) Discontinued Reason: Pt stopped taking med Darunavir Ethanolate* (Prezista*), 800 MG ORAL DAILY, (Reported) Discontinued Reason: Pt stopped taking med Dolutegravir Sodium (Tivicay), 50 MG ORAL DAILY, (Reported) Discontinued Reason: Pt stopped taking med Emtricitabine/Tenofovir 200-300MG* (Truvada 200-300MG*), 1 TAB ORAL DAILY, ( Reported) Discontinued Reason: Pt stopped taking med Ritonavir* (Norvir*), 100 MG ORAL TWICE A DAY, (Reported) Discontinued Reason: Pt stopped taking med Tiotropium [place]* (Spiriva*), 1 PUFF INH DAILY, (Reported) Discontinued Reason: Pt stopped taking med Patient History Healthcare decision maker Resuscitation status Advanced Directive on File Physical Exam Last 24 Hour Vital Signs Date Time Temp Pulse Resp B/P (MAP) Pulse Ox O2 Delivery O2 Flow Rate FiO2 04/19/19 12:00 97.9 22 142/86 (104) 95 04/19/19 09:00 Room Air 04/19/19 08:40 67 16 97 Room Air 21 04/19/19 08:39 68 16 96 Room Air 21 04/19/19 08:00 97.3 19 111/71 (84) 95 04/19/19 04:00 98.1 65 18 116/70 (85) 94 04/19/19 00:00 98.3 67 18 111/65 (80) 94 04/18/19 21:00 Room Air 04/18/19 21:00 98.6 64 18 108/70 (83) 96 04/18/19 20:00 98.6 64 18 108/70 (83) 96 Intake and Output 04/18/19 04/19/19 19:00 07:00 Intake Total 1800 ml Balance 1800 ml Other 1800 ml # Voids 3 Laboratory Tests Test 04/19/19 06:40 White Blood Count 5.5 K/UL (4.8-10.8) Red Blood Count 4.42 M/UL (4.70-6.10) L Hemoglobin 14.4 G/DL (14.2-18.0) Hematocrit 41.8 % (42.0-52.0) L Mean Corpuscular Volume 94 FL (80-99) Mean Corpuscular Hemoglobin 32.6 PG (27.0-31.0) H Mean Corpuscular Hemoglobin Concent 34.5 G/DL (32.0-36.0) Red Cell Distribution Width 10.7 % (11.6-14.8) L Platelet Count 382 K/UL (150-450) Mean Platelet Volume 4.6 FL (6.5-10.1) L Neutrophils (%) (Auto) 52.4 % (45.0-75.0) Lymphocytes (%) (Auto) 26.7 % (20.0-45.0) Monocytes (%) (Auto) 12.9 % (1.0-10.0) H Eosinophils (%) (Auto) 7.3 % (0.0-3.0) H Basophils (%) (Auto) 0.7 % (0.0-2.0) Sodium Level 140 MMOL/L (136-145) Potassium Level 4.0 MMOL/L (3.5-5.1) Chloride Level 102 MMOL/L (98-107) Carbon Dioxide Level 29 MMOL/L (21-32) Anion Gap 9 mmol/L (5-15) Blood Urea Nitrogen 11 mg/dL (7-18) Creatinine 0.7 MG/DL (0.55-1.30) Estimat Glomerular Filtration Rate > 60 mL/min (>60) Glucose Level 101 MG/DL (74-106) Calcium Level 8.8 MG/DL (8.5-10.1) Height (Feet): 5 Height (Inches): 11.00 Weight (Pounds): 200 Assessment/Plan Assessment/Plan: Hematology/Onc Consultation RENichole HENRIQUEZ: Leigh Isaac DOS: 04/19/19 RFC: Kaposi and dvt/protein c/s deficiency w/u HPI 58 year old male with a history of HIV, Kaposi's sarcoma, protein S/C deficiency , prior DVTs presented for evaluation of calf pain and swelling. Symptoms have been present approximately 1 week. Patient recently drove from [place] to [place] after which he has been experiencing pain and cramping and swelling in the left lower extremity with mild pain without swelling in the right lower extremity. He has been off of his Eliquis for 2 weeks in preparation for dental surgery. He also recently took a plane ride to [place]. Has chest pain with inspiration, but denies shortness of breath, palpitations, lightheadedness , nausea, vomiting, rash or recent fever/illness. When he was on Eliquis, he was only taking 2.5 mg BID due to lots of bruising with 5 mg BID. His last DVT was in 2007. Denies ever having had PE. Also had a biopsy of the left 4th finger /5th for eval of sarcoma. PMH: HIV, Kaposi sarcoma, DVTs PSH: Multiple oral surgeries Social Hx: Denies drug or alcohol abuse. He is unemployed, no kid Family history: CAD in dad, he of [place] in his 40's Allergies: SULFA (SULFONAMIDE ANTIBIOTICS) (Verified Allergy, Unknown, 08/04/15) Medication History Scheduled Apixaban (Eliquis), 5 MG PO BID, (Reported) Atorvastatin Calcium* (Atorvastatin Calcium*), 10 MG ORAL BEDTIME, (Reported) Atovaquone (Mepron), 750 MG ORAL TWICE A DAY, (Reported) Chlorhexidine Gluconate (Peridex), 15 ML MM 2Xday, (Reported) Clarithromycin* (Clarithromycin*), 500 MG PO DAILY, (Reported) Darunavir Ethanolate* (Prezista*), 800 MG ORAL DAILY, (Reported) Darunavir/Cob/Emtri/Tenof Alaf (Symtuza 403-905-528-10 mg Tab), 1 EACH PO DAILY , (Reported) [Trelegy Ellipta], DAILY, (Reported) Scheduled PRN Hydrocodone/Acetaminophen (Hydrocodon-Acetaminophn 10-325), 1 TAB ORAL Q6H PRN for For Pain, (Reported) Ibuprofen* (Motrin*), 600 MG ORAL Q8H PRN for For Pain, (Reported) Discontinued Medications Dolutegravir Sodium (Tivicay), 50 MG ORAL DAILY, (Reported) Discontinued Reason: Pt stopped taking med Emtricitabine/Tenofovir 200-300MG* (Truvada 200-300MG*), 1 TAB ORAL DAILY, ( Reported) Discontinued Reason: Pt stopped taking med Ritonavir* (Norvir*), 100 MG ORAL TWICE A DAY, (Reported) Discontinued Reason: Pt stopped taking med Tiotropium [place]* (Spiriva*), 1 PUFF INH DAILY, (Reported) Discontinued Reason: Pt stopped taking med Patient History Healthcare decision maker ROS General: Denies fatigue, fever, chills, weight loss; + weight gain as above HENT: Denies oral sores, neck masses, nasal d/c, hearing problems Vison: Denies change in vision, eye pain, redness, discharge Cardiac: As above Pulmonary: As above GI: Denies heart burn, swallowing difficulty, abdominal pain, diarrhea, constipation : As per HPI Neuro: Denies seizure, weakness, numbness Endo: Denies heat/cold intolerance, weight changes, polyuria, polydipsia Heme/Onc: Denies unusual bleeding, bruising, clotting MSK: Denies join pain, swelling, muscle aches Mental Health: Denies anxiety, depression, mood changes PE: Vitals: reviewed General Appearance: NAD HEENT: normocephalic, atraumatic Neck: non-tender, normal alignment Respiratory/Chest: normal breath sounds bilaterally Cardiovascular/Chest: normal peripheral pulses, normal rate Abdomen: normal bowel sounds, soft, nontender Extremities: normal range of motion ++ lle pain ttp all throughout but improved Labs: noted Imaging: CTA pulmonary: as read by radiology and reviewed by me Contrast bolus timing in the pulmonary arteries is suboptimal but exam is diagnostic for PE, example right lower lobe. Incompletely characterize right hepatic lobe liver lesion. Suspect some peripheral nodular enhancement. Differential includes hemangioma. Additional low-density liver lesion too small to characterize, Atelectasis with probable early infarct in the right lower lobe. Small lung nodules measuring up to about 3 mm in size, example left lower lobe image 95 10, right middle lobe image 160 11 Venous duplex: Positive for DVT on the left. There is DVT involving the superficial femoral vein, popliteal vein and calf veins on the left. Assessment and Recs: # Left lower extremity DVT --> likely due to noncompliance with eliquis, has been off of it x 2-4 weeks per patient --> recommend once daily xarelto once discharged --> dw pcp and truith patient this am # Pulmonary embolism of the right lower lobe --> pulm has been consulted --> h/h is stable, 2d echo obtained and read by pcp --> okay to dc on eliquis or xarelto # Protein C/S deficiency --> Started on heparin gtt INITIALLY but then transitioned to eliquis --> Can be discharged on xarelto or eliquis depending on what insurance authorizes # HIV -> per id recs, resume home meds # HLD --> Atorvastatin --> ldl goal <100 # COPD-stable --> per pulm, continue home inhalers # Dvt ppx noac The timing of this note does not necessarily reflect the time of the patient was seen. Greatly appreciate consultation. Edward Weaver MD Apr 19, 2019 16:49
--- NOTE | 2019-04-19 16:53 | Cardiology Report ---
APPROVED REPORT EKG Measurement Heart [id number] Normal sinus rhythm Normal ECG
--- NOTE | 2019-04-19 17:00 | Consultation ---
DATE OF CONSULTATION: 04/19/2019 PULMONARY CONSULTATION CONSULTING PHYSICIAN: Jono Franz M.D. HISTORY OF PRESENT ILLNESS: This is a 58-year-old male with history of HIV positivity, Kaposi sarcoma, protein S deficiency, and previous DVT, who came to hospital with left lower extremity swelling and pain. He said he has been traveling recently, but only for short time. He has been on Eliquis but has stopped taking it in preparation of surgery. He reported right-sided chest pain as well. He underwent a chest CT which showed a right pulmonary embolism and infarct. He also had left lower extremity DVT. PAST MEDICAL HISTORY: HIV positivity, Kaposi sarcoma, DVT, and protein S deficiency. PREVIOUS SURGERIES: Oral surgery. ALLERGIES: Sulfa. HOME MEDICATIONS: Include Eliquis, Lipitor, Mepron, clindamycin, Prezista, and Symtuza. REVIEW OF SYSTEMS: Denies any headaches, hematemesis, melena, or hematochezia. PHYSICAL EXAMINATION: GENERAL: Reveals a 58-year-old male. HEENT: Unremarkable. LUNGS: Clear breath sounds. ABDOMEN: Soft. NEUROLOGIC: Nonfocal. LABORATORY DATA: Lab testing is unremarkable. IMAGING STUDIES: As discussed above. IMPRESSION: 1. Human immunodeficiency virus positive. 2. Deep venous thrombosis and pulmonary embolism. 3. Protein S deficiency. DISCUSSION: I agree with the use of anticoagulation. We will defer to Hematology regarding choice of NOAC. We will follow as turbine engineer. Discussed with the patient at length. Jono Franz M.D. DR: SHIREEN JOB#: [id number] CC:
== END 2019-04-19 14:42 | disposition home or self-care (01) | DRG 299 ==
LOC: EMR 22:11 → EDBEDREQ 23:54 → 4E 04-17 00:11 → EDBEDREQ 04-17 00:22
DX: I82.492 Acute embolism and thrombosis of other specified deep vein of left lower extremity (principal); I26.99 Other pulmonary embolism without acute cor pulmonale; D68.59 Other primary thrombophilia; B20 Human immunodeficiency virus [HIV] disease; Z88.2 Allergy status to sulfonamides; Z79.01 Long term (current) use of anticoagulants; E78.5 Hyperlipidemia, unspecified; J44.9 Chronic obstructive pulmonary disease, unspecified; Z85.9 Personal history of malignant neoplasm, unspecified; Z91.14 Patient's other noncompliance with medication regimen
CPT/HCPCS: 36415; 71045; 71275; 80048; 80053; 83880; 84484; 85025; 85610; 85730; 93005; 93306; 93970; 94640; 99291